=== PATIENT | male | born 1945 | race Caucasian/White ===

== ENCOUNTER 2016-12-08 17:30 | Emergency (ER) | payer MEDICARE, OTHER ==
[2016-12-08 17:51] VITALS: BP 183/73
--- NOTE | 2016-12-08 19:15 | EDM.PDOC ---
ED HPI GENERAL MEDICAL PROBLEM - General Chief Complaint: Cardiovascular Problem Stated Complaint: HBP Time Seen by Provider: 12/08/16 17:46 Source of Information: Reports: Patient, Family (), RN Notes Reviewed History Limitations: Reports: No Limitations - History of Present Illness INITIAL COMMENTS - FREE TEXT/NARRATIVE: The patient states that he developed symptoms of positional vertigo when he rolled over in bed around 02:30 in the morning, this past 12/06/2016. He had nausea and dry heaves. He got up, and the symptoms persisted for about 2 hours, but were gone in the morning. The symptoms have recurred several times since. The onset of symptoms only occurs if the patient is supine, and are always associated with nausea and dry heaves. When the symptoms began again this afternoon, the patient called the [facility]. Someone suggested he check his blood pressure, which was high, therefore the patient came here for evaluation. Here in the ED, the patient's initial blood pressure was 183/73, however, has decreased to 158/71 without treatment. The patient denies associated neurologic symptoms, such as tingling, numbness, or weakness. The patient reports similar symptoms in approximately 2012. He came to the [place] ED, where he states that no tests were done, but he was prescribed a nausea medicine. He states that he followed up with an ENT (whose name he cannot recall), but by that time his symptoms had resolved, and no further treatment was given. The patient's PCP is Dr. Aguilera at the [facility]. Treatments LOSS CONTROL ENGINEER: Reports: Other (see below) Other Treatments LOSS CONTROL ENGINEER: blood glucose check, BP check - Related Data Allergies Allergy/AdvReac Type Severity Reaction Status Date / Time No Known Allergies Allergy Verified 12/08/16 17:51 Home Meds: Home Meds Aspirin [Ecotrin] 325 mg PO DAILY 10/06/15 [History] Cholecalciferol (Vitamin D3) [Vitamin D3] 1,000 unit PO DAILY 10/06/15 [History] FLUoxetine [PROzac] 10 mg PO QAM 10/06/15 [History] Insulin Glarg,Human.Rec.Analog [LantUS Solostar] 20 units SUBCUT QAM 10/06/15 [ History] Isosorbide Dinitrate 10 mg PO BID 10/06/15 [History] Levothyroxine Sodium 137 mcg PO ACBREAKFAST 10/06/15 [History] Metoprolol Tartrate 75 mg PO BID 10/06/15 [History] Rosuvastatin Calcium 20 mg PO BEDTIME 10/06/15 [History] Terazosin HCl [Terazosin] 10 mg PO BEDTIME 10/06/15 [History] amLODIPine [Norvasc] 5 mg PO QAM 10/06/15 [History] Albuterol Sulfate [Proair Respiclick] 90 mcg IH Q6HR PRN 10/29/15 [History] Tiotropium [Spiriva HandiHaler] 2.5 mcg INH DAILY 10/29/15 [History] Vit A/C/E AC/Znox/Cupric Oxide [Eye Vitamin-Minerals Tablet] 1 each PO DAILY 11/06 [History] Finasteride [Proscar] 5 mg PO BEDTIME tablet 10/31/15 [Rx] Meclizine [Antivert] 1 tab PO Q8H PRN #10 tablet 12/08/16 [Rx] Ondansetron [Zofran ODT] 1 tab PO Q8H PRN #10 tab.dis 12/08/16 [Rx] Past Medical History HEENT History: Reports: Impaired Vision Cardiovascular History: Reports: Afib (resolved after ablation), CAD, High Cholesterol, Hypertension. 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) Psychiatric History: Reports: Depression Endocrine/Metabolic History: Reports: Diabetes, Type II, Hypothyroidism Hematologic History: Reports: Iron Deficiency - Infectious Disease History Infectious Disease History: Reports: Measles - Past Surgical History Cardiovascular Surgical History: Reports: Cardiac Ablation, Carotid Endarterectomy (left 2001, right 2002), Coronary Artery Bypass (x 3 vessel, 1909 ) GI Surgical History: Reports: Appendectomy, Colonoscopy, EGD, Hernia, Inguinal ( left) Musculoskeletal Surgical History: Reports: Other (See Below) (Right knee, open) Social & Family History - Family History Family Medical History: Noncontributory Cardiac: Reports: Bypass, CAD, AK : Reports: Renal Disease/Insufficiency, Other (See Below) Other Family History: kidney transplants Endocrine/Metabolic: Reports: Diabetes, type II Oncologic: Reports: Prostate - Tobacco Use Smoking Status *Q: Former Smoker Years of Tobacco use: 30 Packs/Tins Daily: 2 Used Tobacco, but Quit: No Month Tobacco Last Used: Quit 1991 Second Hand Smoke Exposure: No - Caffeine Use Caffeine Use: Reports: Coffee - Alcohol Use Alcohol Use History: No - Recreational Drug Use Recreational Drug Use: No - Living Situation & Occupation Living situation: Reports: , with Spouse Occupation: Retired ED ROS GENERAL - Review of Systems Review Of Systems: See Below Constitutional: Reports: No Symptoms HEENT: Reports: No Symptoms Respiratory: Reports: No Symptoms Cardiovascular: Reports: No Symptoms Endocrine: Reports: No Symptoms GI/Abdominal: Reports: No Symptoms : Reports: No Symptoms Musculoskeletal: Reports: No Symptoms Skin: Reports: No Symptoms Neurological: Reports: No Symptoms Psychiatric: Reports: No Symptoms Hematologic/Lymphatic: Reports: No Symptoms Immunologic: Reports: No Symptoms ED EXAM, GENERAL - Physical Exam Exam: See Below Exam Limited By: No Limitations General Appearance: Alert, WD/WN, No Apparent Distress Eye Exam: Bilateral Eye: EOMI, Normal Inspection, PERRL Ears: Normal External Exam, Normal Canal, Hearing Grossly Normal, Normal TMs Nose: Normal Inspection, Normal Mucosa, No Blood Throat/Mouth: Normal Inspection, Normal Lips, Normal Voice, No Airway Compromise Head: Atraumatic, Normocephalic Neck: Normal Inspection, Full Range of Motion Respiratory/Chest: No Respiratory Distress, Lungs Clear, Normal Breath Sounds, No Accessory Muscle Use Cardiovascular: Normal Peripheral Pulses, Regular Rate, Rhythm, No Gallop, No JVD, No Murmur, No Rub Peripheral Pulses: 4+: Radial (L), Radial (R) GI/Abdominal: Normal Bowel Sounds, Soft, Non-Tender, No Organomegaly, No Distention, No Abnormal Bruit, No Mass (Male) Exam: Deferred Rectal (Males) Exam: Deferred Back Exam: Normal Inspection, Full Range of Motion, NT Extremities: Normal Inspection, Normal Range of Motion, No Pedal Edema, Normal Capillary Refill Neurological: Alert, Oriented, CN II-XII Intact, Normal Cognition, No Motor/ Sensory Deficits Psychiatric: Normal Affect Skin Exam: Warm, Dry, Intact, Normal Color, No Rash Lymphatic: No Adenopathy Course - Vital Signs Last Recorded V/S: Last Vital Signs Temp 36.0 C 12/08/16 17:44 Pulse 58 L 12/08/16 17:44 Resp 18 12/08/16 17:44 BP 183/73 H 12/08/16 17:44 Pulse Ox 96 12/08/16 17:44 - Re-Assessments/Exams Free Text/Narrative Re-Assessment/Exam: 12/08/16 19:07 Clinically, the patient has BPPV. I will prescribe both Zofran and meclizine. As the patient gets his prescriptions filled [facility], I will give him physical prescriptions. He will follow up with his PCP at the [facility], where he can be referred to an ENT. 12/08/16 19:09 The patient's BP was elevated at 183/73 upon arrival to the ED, however, without treatment, it has decreased to 158/71. No treatment is required. Departure - Departure Time of Disposition: 19:09 Disposition: Home, Self-Care 01 Condition: Good Clinical Impression: BPPV (benign paroxysmal positional vertigo) Prescriptions: Meclizine [Antivert] 1 tab PO Q8H PRN #10 tablet PRN Reason: Dizziness Ondansetron [Zofran ODT] 1 tab PO Q8H PRN #10 tab.dis PRN Reason: Nausea/Vomiting Referrals: Letty Aguilera DO [Primary Care Provider] - Forms: ED Department Discharge Additional Instructions: You were seen in the emergency room for positional vertigo with associated nausea and dry heaves, and elevated blood pressure. Clinically, you are suffering from benign paroxysmal positional vertigo (BPPV), caused by the blockage of one of the 6 semicircular canals in one of your inner ears. Take one tablet of the anti-vertigo medicine meclizine up to every 8 hours, as needed for vertigo. If you take this medicine, do not drive. Dissolve one tablet of the anti-nausea medicine Zofran on your tongue up to every 8 hours, as needed for nausea/vomiting. Follow-up with your PCP, Dr. Aguilera, at the [facility], tomorrow, 12/09/2016. Arrange to be seen by an ENT as soon as possible, for further evaluation and treatment. If any other problems, please do not hesitate to return to the ER.
== END 2016-12-08 19:38 | disposition home or self-care (01) ==
LOC: JD.ED 17:30
DX: H81.10 Benign paroxysmal vertigo, unspecified ear (principal); I48.91 Unspecified atrial fibrillation; I25.10 Atherosclerotic heart disease of native coronary artery without angina pectoris; E78.00 Pure hypercholesterolemia, unspecified; I10 Essential (primary) hypertension; J44.9 Chronic obstructive pulmonary disease, unspecified; K21.9 Gastro-esophageal reflux disease without esophagitis; F32.9 Major depressive disorder, single episode, unspecified; E11.9 Type 2 diabetes mellitus without complications; E03.9 Hypothyroidism, unspecified; Z79.82 Long term (current) use of aspirin; Z79.4 Long term (current) use of insulin; Z79.899 Other long term (current) drug therapy; Z95.1 Presence of aortocoronary bypass graft; Z90.49 Acquired absence of other specified parts of digestive tract; Z98.890 Other specified postprocedural states; Z87.891 Personal history of nicotine dependence
CPT/HCPCS: 99283

== ENCOUNTER 2018-08-09 07:00 | Day surgery (SDC) | payer OTHER, MEDICARE ==
[~2018-08-09 07:00] MED LIST: Cefuroxime 10 MG/ML SYRINGE EYERT SCH; Lidocaine 1% PF 2 ML SDV INJECT SCH; Pilocarpine 4% Ophth Soln 15 ML Bot EYERT SCH
[2018-08-09] MEDS: Polymyxin B/Trimethoprim 10 ML Bottle EYERT SCH ×3 (07:15→09:02)
[2018-08-09] MEDS: Brimonidine 0.2% Ophth Soln 5 ML Bottle EYERT SCH ×3 (07:20→09:02)
[2018-08-09] MEDS: Phenylephrine 2.5% Ophth Soln 2 ML Bot EYERT SCH ×5 (07:25→08:38)
[2018-08-09] MEDS: Tropicamide 1% Ophth Soln 15 ML Bottle EYERT SCH ×4 (07:30→08:08)
--- NOTE | 2018-08-09 07:44 | PCM.PREANE ---
Preanesthetic Assessment - Procedure Proposed Procedure: Right eye extaction cataract with implant - Anesthesia/Transfusion/Family Hx Anesthesia History: Prior Anesthesia Without Reaction Family History of Anesthesia Reaction: No Transfusion History: No Prior Transfusion(s) Type of Transfusion Reactions: Reports: Unknown Intubation History: Unknown - Review of Systems General: No Symptoms Pulmonary: Other (COPD, took inhaler this morning ) Cardiovascular: No Symptoms Gastrointestinal: No Symptoms Neurological: No Symptoms Other: Reports: Diabetes, Thyroid Problems, Depression - Physical Assessment NPO Status Date: 08/08/18 NPO Status Time: 17:30 O2 Sat by Pulse Oximetry: 97 Respiratory Rate: 16 Vital Signs: Last Vital Signs Temp 36.2 C 08/09/18 07:10 Pulse 55 L 08/09/18 07:10 Resp 16 08/09/18 07:10 BP 129/64 08/09/18 07:10 Pulse Ox 97 08/09/18 07:10 Height: 1.78 m Weight: 87.09 kg ASA Class: 3 Mental Status: Alert & Oriented x3 Airway Class: Mallampati = 2 Dentition: Reports: Normal Dentition Thyro-Mental Finger Breadths: 3 Mouth Opening Finger Breadths: 4 ROM/Head Extension: Full Lungs: Clear to Auscultation, Normal Respiratory Effort Cardiovascular: Regular Rhythm, Bradycardia - Allergies Allergies/Adverse Reactions: Allergies Allergy/AdvReac Type Severity Reaction Status Date / Time No Known Allergies Allergy Verified 08/08/18 13:36 - Blood Blood Available: No - Anesthesia Plan Pre-Op Medication Ordered: None Beta Shyam: Metoprolol Med Last Dose Date: 08/09/18 Med Last Dose Time: 06:00 - Acknowledgements Anesthesia Type Planned: MAC Pt an Appropriate Candidate for the Planned Anesthesia: Yes Alternatives and Risks of Anesthesia Discussed w Pt/Guardian: Yes Pt/Guardian Understands and Agrees with Anesthesia Plan: Yes PreAnesthesia Questionnaire HEENT History: Reports: Impaired Vision Other HEENT History: difficulty swallowing after surgery on carotid artery Cardiovascular History: Reports: Afib, CAD, High Cholesterol, Hypertension, PVD (With claudication symptoms. He states he had an ankle brachial assessment last year with a wallpaper printer and barely passed..) Other Cardiovascular History: Triple bypass sugery Respiratory History: Reports: COPD Gastrointestinal History: Reports: GERD, Hemorrhoids Other Gastrointestinal History: SBO Genitourinary History: Reports: BPH Other Genitourinary History: cyst on kidneys Neurological History: Reports: Neuropathy, Peripheral (He states his legs are always hypersensitive to touch. He has significant restless leg syndrome.), Vertigo, Other (See Below) Psychiatric History: Reports: Depression Endocrine/Metabolic History: Reports: Diabetes, Type II, Hypothyroidism Hematologic History: Reports: Iron Deficiency - Infectious Disease History Infectious Disease History: Reports: Measles - Past Surgical History Cardiovascular Surgical History: Reports: Cardiac Ablation, Carotid Endarterectomy, Coronary Artery Bypass (Triple bypass surgery in 2001.) GI Surgical History: Reports: Appendectomy, Colonoscopy, EGD, Hernia, Inguinal, Other (See Below) (Laparotomy times one to two-step small bowel obstruction. Had 6 inches of bowel resected due to gangrenous bowel. Small bowel obstruction treated conservatively with nasogastric tube suction.) Musculoskeletal Surgical History: Reports: Other (See Below) - HOME MEDS Home Medications: Home Meds Aspirin [Ecotrin] 325 mg PO DAILY 10/06/15 [History] Cholecalciferol (Vitamin D3) [Vitamin D3] 1,000 unit PO DAILY 10/06/15 [History] Isosorbide Dinitrate 10 mg PO BID 10/06/15 [History] Levothyroxine Sodium 137 mcg PO ACBREAKFAST 10/06/15 [History] Metoprolol Tartrate 75 mg PO BID 10/06/15 [History] Rosuvastatin Calcium 20 mg PO BEDTIME 10/06/15 [History] amLODIPine [Norvasc] 5 mg PO QAM 10/06/15 [History] Albuterol Sulfate [Proair Respiclick] 90 mcg IH Q6HR PRN 10/29/15 [History] Vit A/C/E AC/Znox/Cupric Oxide [Eye Vitamin-Minerals Tablet] 1 each PO DAILY 11/06 [History] Docusate Sodium [Colace] 100 mg PO DAILY PRN 08/08/18 [History] FLUoxetine HCl [Fluoxetine HCl] 20 mg PO DAILY 08/08/18 [History] Insulin Glargine,Hum.Rec.Anlog [Basaglar Kwikpen U-100] 20 units SQ QAM [History] Tamsulosin HCl 0.8 mg PO DAILY 08/08/18 [History] metFORMIN HCl [Metformin HCl] 1,000 mg PO BID 04/17/19 [History] - CURRENT (IN HOUSE) MEDS Current Meds: Current Medications Brimonidine Tartrate (Alphagan 0.2% Ophth Soln) 0 ml EYERT ASDIRECTED LUCI Stop: 08/09/18 18:00 Last Admin: 08/09/18 07:20 Dose: 1 drop Cefuroxime Sodium (Zinacef) 0 mg EYERT ASDIRECTED LUCI Stop: 08/09/18 18:00 Lidocaine HCl (Xylocaine-Mpf 1%) 0 ml INJECT ASDIRECTED LUCI Stop: 08/09/18 18:00 Phenylephrine HCl (Merlin-Synephrine 2.5% Ophth Soln) 0 ml EYERT ASDIRECTED LUCI Stop: 08/09/18 18:00 Last Admin: 08/09/18 07:35 Dose: 1 drop Pilocarpine HCl (Pilocar 4% Ophth Soln) 0 ml EYERT ASDIRECTED LUCI Stop: 08/09/18 18:00 Polymyxin/Trimethoprim Sulfate (Polytrim Ophth Soln) 0 ml EYERT ASDIRECTED LUCI Stop: 08/09/18 18:00 Last Admin: 08/09/18 07:15 Dose: 1 drop Tetracaine HCl (Tetracaine 0.5% Steri-Unit Chitra) 0 ml EYERT ASDIRECTED LUCI Stop: 08/09/18 18:00 Tropicamide (Mydriacyl 1% Ophth Soln) 0 ml EYERT ASDIRECTED LUCI Stop: 08/09/18 18:00 Last Admin: 08/09/18 07:30 Dose: 1 drop
[2018-08-09] MEDS: Tetracaine HCl/PF 0.5% 4 ML Bottle EYERT SCH ×4 (08:11→08:46)
--- NOTE | 2018-08-09 09:09 | PCM48HPAN ---
Post Anesthesia Note - EVALUATION WITHIN 48HRS OF ANESTHETIC Vital Signs in Normal Range: Yes Patient Participated in Evaluation: Yes Respiratory Function Stable: Yes Airway Patent: Yes Cardiovascular Function Stable: Yes Hydration Status Stable: Yes Pain Control Satisfactory: Yes Nausea and Vomiting Control Satisfactory: Yes Mental Status Recovered: Yes Pulse Rate: 56 SaO2: 100 Resp Rate: 16 Temperature: 97.6 C Blood Pressure: 151/72 Pulse Rate: 56
[2018-08-09 09:12] VITALS: BP 133/59
== END 2018-08-09 09:10 | disposition home or self-care (01) ==
LOC: JD.SDS 07:00
PROVIDERS: ATTEND Ophthalmology
DX: H25.813 Combined forms of age-related cataract, bilateral (principal); J44.9 Chronic obstructive pulmonary disease, unspecified; F32.9 Major depressive disorder, single episode, unspecified; Z79.4 Long term (current) use of insulin; I10 Essential (primary) hypertension; I25.10 Atherosclerotic heart disease of native coronary artery without angina pectoris; N40.0 Benign prostatic hyperplasia without lower urinary tract symptoms; E03.9 Hypothyroidism, unspecified; E11.51 Type 2 diabetes mellitus with diabetic peripheral angiopathy without gangrene; E11.42 Type 2 diabetes mellitus with diabetic polyneuropathy; E78.00 Pure hypercholesterolemia, unspecified; H02.032 Senile entropion of right lower eyelid; H02.413 Mechanical ptosis of bilateral eyelids; H02.832 Dermatochalasis of right lower eyelid; H16.223 Keratoconjunctivitis sicca, not specified as Sjogren's, bilateral; Z95.1 Presence of aortocoronary bypass graft; Z79.82 Long term (current) use of aspirin; Z79.899 Other long term (current) drug therapy; Z79.890 Hormone replacement therapy
CPT/HCPCS: 66984; A9270; C1780; J0697; J2001

== ENCOUNTER 2018-09-13 10:43 | Day surgery (SDC) | payer OTHER, MEDICARE ==
[~2018-09-13 10:43] MED LIST changes: +Cefuroxime 10 MG/ML SYRINGE EYELF SCH; -Cefuroxime 10 MG/ML SYRINGE EYERT SCH; +Pilocarpine 4% Ophth Soln 15 ML Bot EYELF SCH; -Pilocarpine 4% Ophth Soln 15 ML Bot EYERT SCH
[2018-09-13] MEDS: Polymyxin B/Trimethoprim 10 ML Bottle EYELF SCH ×3 (10:55→12:39)
[2018-09-13] MEDS: Brimonidine 0.2% Ophth Soln 5 ML Bottle EYELF SCH ×3 (11:00→12:39)
[2018-09-13] MEDS: Phenylephrine 2.5% Ophth Soln 2 ML Bot EYELF SCH ×6 (11:05→12:24)
[2018-09-13] MEDS: Tropicamide 1% Ophth Soln 15 ML Bottle EYELF SCH ×4 (11:10→11:50)
--- NOTE | 2018-09-13 11:15 | PCM.PREANE ---
Preanesthetic Assessment - Procedure Proposed Procedure: Left Eye cataract extraction - Anesthesia/Transfusion/Family Hx Anesthesia History: Prior Anesthesia Without Reaction Transfusion History: No Prior Transfusion(s) Type of Transfusion Reactions: Reports: Unknown Intubation History: Unknown - Review of Systems General: No Symptoms Pulmonary: Other (COPD ) Cardiovascular: Other (open heart surgery 2008 ) Gastrointestinal: No Symptoms Neurological: No Symptoms Other: Reports: Thyroid Problems, Depression - Physical Assessment NPO Status Date: 09/13/18 NPO Status Time: 05:45 O2 Sat by Pulse Oximetry: 95 Respiratory Rate: 16 Vital Signs: Last Vital Signs Temp 36.4 C 09/13/18 10:46 Pulse 63 09/13/18 10:46 Resp 16 09/13/18 10:46 BP 167/67 H 09/13/18 10:46 Pulse Ox 95 09/13/18 10:46 Height: 1.78 m Weight: 87.09 kg ASA Class: 2 Mental Status: Alert & Oriented x3 Airway Class: Mallampati = 2 Dentition: Reports: Broken Tooth/Teeth, Missing Tooth/Teeth Thyro-Mental Finger Breadths: 3 Mouth Opening Finger Breadths: 4 ROM/Head Extension: Full Lungs: Clear to Auscultation, Normal Respiratory Effort Cardiovascular: Regular Rate, Regular Rhythm - Lab Values: Laboratory Last Values POC Glucose 104 mg/dL (83-110) 09/13/18 10:51 - Allergies Allergies/Adverse Reactions: Allergies Allergy/AdvReac Type Severity Reaction Status Date / Time No Known Allergies Allergy Verified 09/12/18 12:56 - Blood Blood Available: No - Anesthesia Plan Pre-Op Medication Ordered: None - Acknowledgements Anesthesia Type Planned: MAC Pt an Appropriate Candidate for the Planned Anesthesia: Yes Alternatives and Risks of Anesthesia Discussed w Pt/Guardian: Yes Pt/Guardian Understands and Agrees with Anesthesia Plan: Yes PreAnesthesia Questionnaire HEENT History: Reports: Impaired Vision Other HEENT History: difficulty swallowing after surgery on carotid artery Cardiovascular History: Reports: Afib, CAD, High Cholesterol, Hypertension, PVD (With claudication symptoms. He states he had an ankle brachial assessment last year with a content administrator and barely passed..) Other Cardiovascular History: Triple bypass sugery Respiratory History: Reports: COPD Gastrointestinal History: Reports: GERD, Hemorrhoids Other Gastrointestinal History: SBO Genitourinary History: Reports: BPH Other Genitourinary History: cyst on kidneys Neurological History: Reports: Neuropathy, Peripheral (He states his legs are always hypersensitive to touch. He has significant restless leg syndrome.), Vertigo, Other (See Below) Psychiatric History: Reports: Depression Endocrine/Metabolic History: Reports: Diabetes, Type II, Hypothyroidism Hematologic History: Reports: Iron Deficiency - Infectious Disease History Infectious Disease History: Reports: Measles - Past Surgical History Cardiovascular Surgical History: Reports: Cardiac Ablation, Carotid Endarterectomy, Coronary Artery Bypass (Triple bypass surgery in 2001.) GI Surgical History: Reports: Appendectomy, Colonoscopy, EGD, Hernia, Inguinal, Other (See Below) (Laparotomy times one to two-step small bowel obstruction. Had 6 inches of bowel resected due to gangrenous bowel. Small bowel obstruction treated conservatively with nasogastric tube suction.) Musculoskeletal Surgical History: Reports: Other (See Below) - HOME MEDS Home Medications: Home Meds Aspirin [Ecotrin] 325 mg PO DAILY 10/06/15 [History] Cholecalciferol (Vitamin D3) [Vitamin D3] 1,000 unit PO DAILY 10/06/15 [History] Isosorbide Dinitrate 10 mg PO BID 10/06/15 [History] Levothyroxine Sodium 137 mcg PO ACBREAKFAST 10/06/15 [History] Metoprolol Tartrate 75 mg PO BID 10/06/15 [History] Rosuvastatin Calcium 20 mg PO BEDTIME 10/06/15 [History] amLODIPine [Norvasc] 5 mg PO QAM 10/06/15 [History] Albuterol Sulfate [Proair Respiclick] 90 mcg IH Q6HR PRN 10/29/15 [History] Vit A/C/E AC/Znox/Cupric Oxide [Eye Vitamin-Minerals Tablet] 1 each PO DAILY 11/06 [History] Docusate Sodium [Colace] 100 mg PO DAILY PRN 08/08/18 [History] FLUoxetine HCl [Fluoxetine HCl] 20 mg PO DAILY 08/08/18 [History] Insulin Glargine,Hum.Rec.Anlog [Basaglar Kwikpen U-100] 20 units SQ QAM [History] Tamsulosin HCl 0.8 mg PO DAILY 08/08/18 [History] metFORMIN HCl [Metformin HCl] 1,000 mg PO BID 08/08/18 [History] - CURRENT (IN HOUSE) MEDS Current Meds: Current Medications Brimonidine Tartrate (Alphagan 0.2% Ophth Soln) 0 ml EYELF ASDIRECTED LUCI Stop: 09/13/18 18:00 Last Admin: 09/13/18 11:00 Dose: 1 drop Cefuroxime Sodium (Zinacef) 0 mg EYELF ASDIRECTED LUCI Stop: 09/13/18 18:00 Lidocaine HCl (Xylocaine-Mpf 1%) 1 ml INJECT ASDIRECTED LUCI Stop: 09/13/18 18:00 Phenylephrine HCl (Merlin-Synephrine 2.5% Ophth Soln) 0 ml EYELF ASDIRECTED LUCI Stop: 09/13/18 18:00 Last Admin: 09/13/18 11:05 Dose: 1 drop Pilocarpine HCl (Pilocar 4% Ophth Soln) 0 ml EYELF ASDIRECTED LUCI Stop: 09/13/18 18:00 Polymyxin/Trimethoprim Sulfate (Polytrim Ophth Soln) 0 ml EYELF ASDIRECTED LUCI Stop: 09/13/18 18:00 Last Admin: 09/13/18 10:55 Dose: 1 drop Tetracaine HCl (Tetracaine 0.5% Steri-Unit Chitra) 0 ml EYELF ASDIRECTED LUCI Stop: 09/13/18 18:00 Tropicamide (Mydriacyl 1% Ophth Soln) 0 ml EYELF ASDIRECTED LUCI Stop: 09/13/18 18:00
[2018-09-13] MEDS: Tetracaine HCl/PF 0.5% 4 ML Bottle EYELF SCH ×4 (12:02→12:32)
--- NOTE | 2018-09-13 12:44 | PCM.POSTAN ---
POST ANESTHESIA ASSESSMENT - MENTAL STATUS Mental Status: Alert - RESPIRATORY Respiratory Status: Respiratory Rate WNL, Airway Patent, O2 Saturation Stable - CARDIOVASCULAR CV Status: Pulse Rate WNL - GASTROINTESTINAL GI Status: No Symptoms - POST OP HYDRATION Hydration Status: Adequate & Stable
--- NOTE | 2018-09-13 12:45 | PCM48HPAN ---
Post Anesthesia Note - EVALUATION WITHIN 48HRS OF ANESTHETIC Vital Signs in Normal Range: Yes Patient Participated in Evaluation: Yes Respiratory Function Stable: Yes Airway Patent: Yes Cardiovascular Function Stable: Yes Hydration Status Stable: Yes Pain Control Satisfactory: Yes Nausea and Vomiting Control Satisfactory: Yes Mental Status Recovered: Yes Resp Rate: 16
[2018-09-13 12:57] VITALS: BP 159/78
== END 2018-09-13 12:50 | disposition home or self-care (01) ==
LOC: JD.SDS 10:43
PROVIDERS: ATTEND Ophthalmology
DX: H25.812 Combined forms of age-related cataract, left eye (principal); I25.10 Atherosclerotic heart disease of native coronary artery without angina pectoris; I10 Essential (primary) hypertension; E11.42 Type 2 diabetes mellitus with diabetic polyneuropathy; E11.51 Type 2 diabetes mellitus with diabetic peripheral angiopathy without gangrene; E78.00 Pure hypercholesterolemia, unspecified; E03.9 Hypothyroidism, unspecified; J44.9 Chronic obstructive pulmonary disease, unspecified; F32.9 Major depressive disorder, single episode, unspecified; Z98.41 Cataract extraction status, right eye; Z96.1 Presence of intraocular lens; Z95.1 Presence of aortocoronary bypass graft; Z87.891 Personal history of nicotine dependence; Z83.518 Family history of other specified eye disorder; Z79.82 Long term (current) use of aspirin; Z79.4 Long term (current) use of insulin; Z79.899 Other long term (current) drug therapy
CPT/HCPCS: 66984; 82962; C1780; J0697; J2001

== ENCOUNTER 2019-10-02 07:44 | Day surgery (SDC) | payer OTHER, MEDICARE ==
[~2019-10-02 07:44] MED LIST changes: +Albuterol 0.083% 2.5 MG/3 ML Neb Soln NEB ONE; -Cefuroxime 10 MG/ML SYRINGE EYELF SCH; +Lactated Ringers 1,000 ML IV SCH; -Lidocaine 1% PF 2 ML SDV INJECT SCH; +Lidocaine 1%/Sod Bicarbonate in NS 8.4% 1 ML Syringe IDERM PRN; -Pilocarpine 4% Ophth Soln 15 ML Bot EYELF SCH; +Sodium Chloride 0.9% 10 ML Syringe FLUSH PRN
[2019-10-02] MEDS ORDERED: Albuterol 0.083% 2.5 MG/3 ML Neb Soln ONE (08:01)
--- NOTE | 2019-10-02 08:02 | PCM.PREANE ---
Preanesthetic Assessment - Procedure Proposed Procedure: Colonoscopy - Anesthesia/Transfusion/Family Hx Anesthesia History: Prior Anesthesia Without Reaction Family History of Anesthesia Reaction: No Transfusion History: No Prior Transfusion(s) Type of Transfusion Reactions: Reports: Unknown Intubation History: Unknown - Review of Systems General: No Symptoms Pulmonary: No Symptoms, Other (COPD) Cardiovascular: Dyspnea on Exertion Gastrointestinal: No Symptoms Neurological: No Symptoms Other: Reports: Easy Bleeding, Easy Bruising, Diabetes (96 this am 0600), Thyroid Problems (hypothyroid) - Physical Assessment NPO Status Date: 10/01/19 NPO Status Time: 00:00 Height: 1.78 m Weight: 78.925 kg ASA Class: 3 Mental Status: Alert & Oriented x3 Airway Class: Mallampati = 1 Dentition: Reports: Normal Dentition, Clarinda(s) Thyro-Mental Finger Breadths: 2 Mouth Opening Finger Breadths: 3 ROM/Head Extension: Full Lungs: Clear to Auscultation, Normal Respiratory Effort Cardiovascular: Regular Rate, Regular Rhythm - Lab Values: Laboratory Last Values SARS Virus RNA (PCR) Negative (NEGATIVE) 09/30/19 10:00 - Imaging/EKG Impressions: EKG SR Rate 55 borderline low voltage - Allergies Allergies/Adverse Reactions: Allergies Allergy/AdvReac Type Severity Reaction Status Date / Time No Known Allergies Allergy Verified 09/12/18 12:56 - Blood Blood Available: No - Anesthesia Plan Pre-Op Medication Ordered: Beta Shyam Beta Shyam: Metoprolol Med Last Dose Date: 10/02/19 Med Last Dose Time: 06:00 - Acknowledgements Anesthesia Type Planned: MAC Pt an Appropriate Candidate for the Planned Anesthesia: Yes Alternatives and Risks of Anesthesia Discussed w Pt/Guardian: Yes Pt/Guardian Understands and Agrees with Anesthesia Plan: Yes PreAnesthesia Questionnaire HEENT History: Reports: Impaired Vision Other HEENT History: difficulty swallowing after surgery on carotid artery Cardiovascular History: Reports: Afib, CAD, High Cholesterol, Hypertension, PVD (With claudication symptoms. He states he had an ankle brachial assessment last year with a cat scanner operator and barely passed..) Other Cardiovascular History: Triple bypass sugery Respiratory History: Reports: COPD Gastrointestinal History: Reports: GERD, Hemorrhoids Other Gastrointestinal History: SBO Genitourinary History: Reports: BPH Other Genitourinary History: cyst on kidneys Neurological History: Reports: Neuropathy, Peripheral (He states his legs are always hypersensitive to touch. He has significant restless leg syndrome.), Vertigo, Other (See Below) Psychiatric History: Reports: Depression Endocrine/Metabolic History: Reports: Diabetes, Type II, Hypothyroidism Hematologic History: Reports: Iron Deficiency - Infectious Disease History Infectious Disease History: Reports: Measles - Past Surgical History Cardiovascular Surgical History: Reports: Cardiac Ablation, Carotid Endarterectomy, Coronary Artery Bypass (Triple bypass surgery in 2001.) GI Surgical History: Reports: Appendectomy, Colonoscopy, EGD, Hernia, Inguinal, Other (See Below) (Laparotomy times one to two-step small bowel obstruction. Had 6 inches of bowel resected due to gangrenous bowel. Small bowel obstruction treated conservatively with nasogastric tube suction.) Musculoskeletal Surgical History: Reports: Other (See Below) - HOME MEDS Home Medications: Home Meds Aspirin [Ecotrin] 325 mg PO DAILY 10/06/15 [History] Cholecalciferol (Vitamin D3) [Vitamin D3] 1,000 unit PO DAILY 10/06/15 [History] Isosorbide Dinitrate 10 mg PO BID 10/06/15 [History] Levothyroxine Sodium 137 mcg PO ACBREAKFAST 10/06/15 [History] Metoprolol Tartrate 75 mg PO BID 10/06/15 [History] Rosuvastatin Calcium 20 mg PO BEDTIME 10/06/15 [History] amLODIPine [Norvasc] 5 mg PO QAM 10/06/15 [History] Albuterol Sulfate [Proair Respiclick] 90 mcg IH Q6HR PRN 10/29/15 [History] Vit A/C/E AC/Znox/Cupric Oxide [Eye Vitamin-Minerals Tablet] 1 each PO DAILY 11/06 [History] Docusate Sodium [Colace] 100 mg PO DAILY PRN 08/08/18 [History] FLUoxetine HCl [Fluoxetine HCl] 20 mg PO DAILY 08/08/18 [History] Insulin Glargine,Hum.Rec.Anlog [Basaglar Kwikpen U-100] 20 units SQ QAM [History] Tamsulosin HCl 0.8 mg PO DAILY 08/08/18 [History] metFORMIN HCl [Metformin HCl] 1,000 mg PO BID 08/08/18 [History] - CURRENT (IN HOUSE) MEDS Current Meds: Current Medications Lactated Ringer's (Ringers, Lactated) 1,000 mls @ 125 mls/hr IV ASDIRECTED LUCI Stop: 10/02/19 23:00 Lidocaine/Sodium Bicarbonate (Buffered Lidocaine 1% In Ns 8.4%) 0.25 ml IDERM ONETIME PRN PRN Reason: Prior to IV Start Stop: 10/02/19 23:00 Sodium Chloride (Saline Flush) 10 ml FLUSH ASDIRECTED PRN PRN Reason: Keep Vein Open Stop: 10/02/19 18:00 Discontinued Medications Albuterol (Proventil Neb Soln) 2.5 mg NEB ONETIME ONE Stop: 10/02/19 00:02
[2019-10-02] MEDS ORDERED: Propofol 200 MG/20 ML SDV ONE ×2 (08:24→08:52)
[2019-10-02] MEDS ORDERED: ePHEDrine Sulfate/0.9% NaCl/Pf 25 MG/5 ML SYRINGE IV ONE (09:22)
--- NOTE | 2019-10-02 09:44 | PCM.OPNOTE ---
- General Post-Op/Procedure Note Date of Surgery/Procedure: 10/02/19 Operative Procedure(s): Colonoscopy to ascending colon Findings: 1. Inability to intubate the cecum 2. Descending colon polyps x2 3. Internal hemorrhoids Pre Op Diagnosis: history of colon polyps Post-Op Diagnosis: history of colon polyps Anesthesia Technique: MAC Primary Surgeon: Any Prescott Anesthesia Provider: Kenna Bassett Pathology: Descending colon polyps x2 Fluid Replacement, Intraop: 700 Output, Urine Amount: 0 EBL in mLs: 0 Complications: none apparent Condition: Good
--- NOTE | 2019-10-02 09:47 | PCM48HPAN ---
Post Anesthesia Note - EVALUATION WITHIN 48HRS OF ANESTHETIC Vital Signs in Normal Range: Yes Patient Participated in Evaluation: Yes Respiratory Function Stable: Yes Airway Patent: Yes Cardiovascular Function Stable: Yes Hydration Status Stable: Yes Pain Control Satisfactory: Yes Nausea and Vomiting Control Satisfactory: Yes Mental Status Recovered: Yes Vital Signs: Last Vital Signs Temp 36.7 C 10/02/19 07:50 Pulse 54 L 10/02/19 07:50 Resp 16 10/02/19 07:50 BP 147/50 H 10/02/19 07:50 Pulse Ox 98 10/02/19 07:50
[2019-10-02 09:48] VITALS: BP 126/47; PULSE 65
--- NOTE | 2019-10-02 09:49 | PCM.PRNOTE ---
- Free Text/Narrative Note: Operative Report Date of Surgery/Procedure: October 02, 2019 Operative Procedure: Colonoscopy to ascending colon with polypectomy Pre Op Diagnosis: History of colon polyps Post-Op Diagnosis: Same Surgeon: Any Prescott Anesthesia Technique: MAC Anesthesia Provider: Kenna Bassett CRNA IV Fluid Replacement, Intraop: 700cc Output, Urine Amount: 0cc EBL : 0cc Findings: 1. Inability to intubate the cecum, reached the ascending colon 2. Descending colon polyps x2 3. Diverticulosis 4. Internal hemorrhoids Specimens: Descending colon polyps x2 Indication: The patient is a 74 year-old gentleman who presented to the outpatient clinic requesting colonoscopy for history of colon polyps. We discussed the procedure of a surveillance colonoscopy including the polypectomy and biopsy. Risks of bleeding and perforation were discussed, the patient understood and wished to proceed. Written and consent was obtained Description of the procedure: The patient was brought to the endoscopy suite and placed in the left lateral decubitus position. Appropriate monitors were applied. The patient was given MAC anesthesia. An anorectal examination was performed, revealing external anal skin tags. The scope was placed into the rectum and advanced to cecum with moderate difficulty requiring change in patient position to supine, abdominal manual pressure as well as withdrawal and reinsertion of the scope. The patient s cecum was visualized but could not be entered. The ileocecal valve was identified and photographed. At this point, the scope was withdrawn, paying careful attention to the mucosa. The patient had good bowel prep, allowing for visualization of 90-95% of the mucosa. Two descending colon polyps were seen. These were removed using jumbo cold biopsy forceps was noted. Scattered small diverticula were seen. In the rectum, the scope was retroflexed and no abnormalities were noted, except for some enlarged hemorrhoidal tissue. The scope was placed back in the lumen and the excess air was aspirated. The patient tolerated the procedure well. Complications: none apparent Condition: Good, transported to PACU in stable condition Any Prescott MD General Surgery
== END 2019-10-02 10:35 | disposition home or self-care (01) ==
LOC: JD.SDS 07:44
PROVIDERS: ATTEND Surgery
DX: Z12.11 Encounter for screening for malignant neoplasm of colon (principal); K63.5 Polyp of colon; K57.30 Diverticulosis of large intestine without perforation or abscess without bleeding; K64.8 Other hemorrhoids; Z11.59 Encounter for screening for other viral diseases; E11.9 Type 2 diabetes mellitus without complications; I10 Essential (primary) hypertension; J44.9 Chronic obstructive pulmonary disease, unspecified; E78.00 Pure hypercholesterolemia, unspecified; Z90.49 Acquired absence of other specified parts of digestive tract; Z98.890 Other specified postprocedural states; Z86.010 Personal history of colon polyps; Z79.899 Other long term (current) drug therapy; Z87.891 Personal history of nicotine dependence; Z79.82 Long term (current) use of aspirin
CPT/HCPCS: 45380; 87635; 93005; 94640; J0171; J2704; J7120; U0002

== ENCOUNTER 2020-01-22 08:43 | Day surgery (SDC) | payer MEDICARE, OTHER ==
[~2020-01-22 08:43] MED LIST changes: -Albuterol 0.083% 2.5 MG/3 ML Neb Soln NEB ONE
[2020-01-22] MEDS ORDERED: Lidocaine 1% 4 ML ONE ×2 (10:07→11:35)
[2020-01-22] MEDS ORDERED: Propofol 200 MG/20 ML SDV ONE ×2 (10:07→10:45)
--- NOTE | 2020-01-22 10:16 | PCM.PREANE ---
Preanesthetic Assessment - Procedure Proposed Procedure: colonoscopy - Anesthesia/Transfusion/Family Hx Anesthesia History: Prior Anesthesia Without Reaction Family History of Anesthesia Reaction: No Transfusion History: No Prior Transfusion(s) Type of Transfusion Reactions: Reports: Chills, Unknown Intubation History: Unknown - Review of Systems General: No Symptoms Pulmonary: No Symptoms Cardiovascular: Dyspnea on Exertion Gastrointestinal: No Symptoms Neurological: No Symptoms Other: Reports: Diabetes (142 at 0600), Thyroid Problems (hypothyroid) - Physical Assessment NPO Status Date: 01/21/20 NPO Status Time: 00:00 Vital Signs: Last Vital Signs Temp 36.0 C L 01/22/20 08:40 Pulse 55 L 01/22/20 08:40 Resp 16 01/22/20 08:40 BP 135/55 L 01/22/20 08:40 Pulse Ox 98 01/22/20 08:40 Height: 1.78 m Weight: 77.564 kg ASA Class: 3 Mental Status: Alert & Oriented x3 Dentition: Reports: Normal Dentition, Carrizozo(s), Missing Tooth/Teeth Thyro-Mental Finger Breadths: 3 Mouth Opening Finger Breadths: 3 ROM/Head Extension: Full Lungs: Clear to Auscultation, Normal Respiratory Effort Cardiovascular: Regular Rate, Regular Rhythm - Lab Values: Laboratory Last Values SARS-CoV-2 RNA (AMANUEL) Negative (NEGATIVE) 01/22/20 08:38 - Allergies Allergies/Adverse Reactions: Allergies Allergy/AdvReac Type Severity Reaction Status Date / Time No Known Allergies Allergy Verified 01/21/20 12:03 - Blood Blood Available: No Product(s) Available: None - Anesthesia Plan Pre-Op Medication Ordered: Beta Shyam Beta Hsyam: Metoprolol Med Last Dose Date: 01/22/20 Med Last Dose Time: 06:00 - Acknowledgements Anesthesia Type Planned: MAC Pt an Appropriate Candidate for the Planned Anesthesia: Yes Alternatives and Risks of Anesthesia Discussed w Pt/Guardian: Yes Pt/Guardian Understands and Agrees with Anesthesia Plan: Yes PreAnesthesia Questionnaire HEENT History: Reports: Impaired Vision Other HEENT History: trouble swallowing, wears glasses Cardiovascular History: Reports: Afib, CAD, High Cholesterol, Hypertension, PVD Other Cardiovascular History: Triple bypass sugery Respiratory History: Reports: COPD, Sleep Apnea Gastrointestinal History: Reports: Chronic Constipation, GERD, Hemorrhoids, Hiatal Hernia Other Gastrointestinal History: SBO Genitourinary History: Reports: BPH Other Genitourinary History: cyst on kidneys, frequency HEAD OF QUALITY History: Reports: None Neurological History: Reports: Neuropathy, Peripheral, Vertigo, Other (See Below) Other Neuro History: cerebrovascular disease Psychiatric History: Reports: Depression Endocrine/Metabolic History: Reports: Diabetes, Type II, Hypothyroidism Hematologic History: Reports: Iron Deficiency, Other (See Below) Other Hematologic History: hematoma to neck Oncologic (Cancer) History: Reports: None Dermatologic History: Reports: None - Infectious Disease History Infectious Disease History: Reports: Measles - Past Surgical History HEENT Surgical History: Reports: Cataract Surgery, Other (See Below) Other HEENT Surgeries/Procedures: eyelid surgery Cardiovascular Surgical History: Reports: Cardiac Ablation, Carotid Endarterectomy, Coronary Artery Bypass Respiratory Surgical History: Reports: None GI Surgical History: Reports: Appendectomy, Colonoscopy, EGD, Hernia, Inguinal, Other (See Below) Other GI Surgeries/Procedures: ruptured intestine surgery October 05 Female Surgical History: Reports: None Male Surgical History: Reports: None Endocrine Surgical History: Reports: None Neurological Surgical History: Reports: None Musculoskeletal Surgical History: Reports: Other (See Below) Other Musculoskeletal Surgeries/Procedures:: right knee surgery Oncologic Surgical History: Reports: None Dermatological Surgical History: Reports: None - SUBSTANCE USE Smoking Status *Q: Former Smoker Tobacco Use Within Last Twelve Months: No Second Hand Smoke Exposure: No Days Per Week of Alcohol Use: 0 Number of Drinks Per Day: 0 Total Drinks Per Week: 0 Recreational Drug Use History: No - HOME MEDS Home Medications: Home Meds Aspirin [Ecotrin] 325 mg PO DAILY 10/06/15 [History] Cholecalciferol (Vitamin D3) [Vitamin D3] 1,000 unit PO DAILY 10/06/15 [History] Isosorbide Dinitrate 10 mg PO BID 10/06/15 [History] Levothyroxine Sodium 137 mcg PO ACBREAKFAST 10/06/15 [History] Metoprolol Tartrate 75 mg PO BID 10/06/15 [History] Rosuvastatin Calcium 20 mg PO BEDTIME 10/06/15 [History] amLODIPine [Norvasc] 5 mg PO QAM 10/06/15 [History] Albuterol Sulfate [Proair Respiclick] 90 mcg IH Q6HR PRN 10/29/15 [History] Tamsulosin HCl 0.8 mg PO DAILY 08/08/18 [History] metFORMIN HCl [Metformin HCl] 1,000 mg PO BID 08/08/18 [History] FLUoxetine HCl [Prozac] 20 mg PO DAILY 01/21/20 [History] Finasteride [Proscar] 5 mg PO DAILY 01/21/20 [History] Insulin Aspart [NovoLOG] 1 dose SQ TID PRN 01/21/20 [History] Insulin Detemir [Levemir] 20 units SQ DAILY 01/21/20 [History] L.acidoph,Paracasei, B.lactis [Probiotic] 1 cap PO DAILY 01/21/20 [History] Multivitamin [Poly-Vitamin] 1 tab PO DAILY 01/21/20 [History] Psyllium Husk (With Sugar) [Fiber Therapy Powder] 1 dose PO DAILY 01/21/20 [History] Tiotropium [Spiriva HandiHaler] 2 puff INH DAILY 01/21/20 [History] - CURRENT (IN HOUSE) MEDS Current Meds: Current Medications Lactated Ringer's (Ringers, Lactated) 1,000 mls @ 125 mls/hr IV ASDIRECTED LUCI Stop: 01/22/20 23:00 Last Admin: 01/22/20 08:55 Dose: 125 mls/hr Documented by: Lidocaine/Sodium Bicarbonate (Buffered Lidocaine 1% In Ns 8.4%) 0.25 ml IDERM ONETIME PRN PRN Reason: Prior to IV Start Stop: 01/22/20 18:00 Last Admin: 01/22/20 08:54 Dose: 0.25 ml Documented by: Sodium Chloride (Saline Flush) 10 ml FLUSH ASDIRECTED PRN PRN Reason: Keep Vein Open Stop: 01/22/20 18:00 Discontinued Medications Lidocaine HCl (Xylocaine-Mpf 1%) Confirm Administered Dose 4 mls @ as directed .ROUTE .STK-MED ONE Stop: 01/22/20 10:08 Propofol (Diprivan 20 Ml) Confirm Administered Dose 400 mg .ROUTE .STK-MED ONE Stop: 01/22/20 10:08
--- NOTE | 2020-01-22 11:21 | PCM.PRNOTE ---
- Free Text/Narrative Note: Operative Report Date of Surgery/Procedure: January 22, 2020 Operative Procedure: Colonoscopy to cecum with hemorrhoid banding Pre Op Diagnosis: hematochezia Post-Op Diagnosis: same Surgeon: Any Prescott MD Anesthesia Technique: MAC Anesthesia Provider: Haja Carlos CRNA IV Fluid Replacement, Intraop: 800cc Output, Urine Amount: 0cc EBL : 0cc Findings: internal and external hemorrhoids Specimens: none Indication: The patient is a 74 year-old gentleman who presented to the outpatient clinic requesting evaluation of his hematochezia. The patient has a history of incomplete colonoscopy due to poor prep. We discussed the procedure of a colonoscopy including the polypectomy and biopsy, as well as possible hemorrhoid banding. Risks of bleeding and perforation were discussed, the patient understood and wished to proceed. Written and consent was obtained Description of the procedure: The patient was brought to the endoscopy suite and placed in the left lateral decubitus position. Appropriate monitors were applied. The patient was given MAC anesthesia. An anorectal examination was performed, revealing external hemorrhoids and skin tags. The scope was placed into the rectum and advanced to cecum with much difficulty requiring withdrawal and reinsertion of the scope, manual abdominal pressure, and change in patient position to supine. The patients cecum was entered, and the ileocecal valve and appendiceal orifice were identified and normal. At this point, the scope was withdrawn, paying careful attention to the mucosa. The patient had good bowel prep, allowing for visualization of 90% of the mucosa. No colonic abnormality was noted. In the rectum, the scope was retroflexed and no abnormalities were noted, except for some enlarged hemorrhoidal tissue. The scope was placed back in the lumen and the excess air was aspirated. An anoscope was inserted and 3 hemorrhoid bands we re placed. The procedure was then terminated. The patient tolerated the procedure well. Complications: none apparent Condition: Good, transported to PACU in stable condition Any Prescott MD General Surgery
--- NOTE | 2020-01-22 11:21 | PCM.OPNOTE ---
- General Post-Op/Procedure Note Date of Surgery/Procedure: 01/22/20 Operative Procedure(s): Colonoscopy with hemorrhoid banding Findings: internal and external hemorrhoids Pre Op Diagnosis: hematochezia Post-Op Diagnosis: same Anesthesia Technique: MAC Primary Surgeon: Any Prescott Anesthesia Provider: Haja Carlos Pathology: none Fluid Replacement, Intraop: 800 Output, Urine Amount: 0 EBL in mLs: 0 Complications: none apparent Condition: Good
--- NOTE | 2020-01-22 11:28 | PCM48HPAN ---
Post Anesthesia Note - EVALUATION WITHIN 48HRS OF ANESTHETIC Vital Signs in Normal Range: Yes Patient Participated in Evaluation: Yes Respiratory Function Stable: Yes Airway Patent: Yes Cardiovascular Function Stable: Yes Hydration Status Stable: Yes Pain Control Satisfactory: Yes Nausea and Vomiting Control Satisfactory: Yes Mental Status Recovered: Yes Vital Signs: Last Vital Signs Temp 36.0 C L 01/22/20 08:40 Pulse 55 L 01/22/20 08:40 Resp 16 01/22/20 08:40 BP 135/55 L 01/22/20 08:40 Pulse Ox 98 01/22/20 08:40 - COMMENTS/OBSERVATIONS Free Text/Narrative:: no anesthesia complications noted
[2020-01-22 12:18] VITALS: BP 151/73; PULSE 61
== END 2020-01-22 12:48 | disposition home or self-care (01) ==
LOC: JD.SDS 08:43
PROVIDERS: ATTEND Surgery
DX: K64.4 Residual hemorrhoidal skin tags (principal); K64.8 Other hemorrhoids; E78.00 Pure hypercholesterolemia, unspecified; I10 Essential (primary) hypertension; J44.9 Chronic obstructive pulmonary disease, unspecified; Z01.812 Encounter for preprocedural laboratory examination; Z20.828 Contact with and (suspected) exposure to other viral communicable diseases; K21.9 Gastro-esophageal reflux disease without esophagitis; E03.9 Hypothyroidism, unspecified; E11.42 Type 2 diabetes mellitus with diabetic polyneuropathy; Z87.891 Personal history of nicotine dependence; Z79.82 Long term (current) use of aspirin; Z79.899 Other long term (current) drug therapy; Z79.4 Long term (current) use of insulin; Z79.890 Hormone replacement therapy
CPT/HCPCS: 45378; 46221; 87635; J2001; J2704; J7120; U0002

== ENCOUNTER 2020-10-20 14:04 | Emergency (ER) | payer OTHER ==
--- NOTE | 2020-10-20 16:46 | EDM.PDOC ---
ED HPI GENERAL MEDICAL PROBLEM - General Chief Complaint: Chest Pain Stated Complaint: CHEST PAIN AND HIGH BLOOD PRESSURE Time Seen by Provider: 10/20/20 14:15 Source of Information: Reports: Patient History Limitations: Reports: No Limitations - History of Present Illness INITIAL COMMENTS - FREE TEXT/NARRATIVE: 75 yo M with hx CABG, PCI, HTN, DM, presents with episode of epigastric and low mid chest pain that started suddenly while he was grocery shopping. The pain was sharp, radiated across his abdomen, and towards his back. It was severe. It lasted around 30 minutes then resolved spontaneously. No vomiting or associated symptoms. He has chronic SOB, no change in that. Pain had completely resolved by the time he arrived to the ED. No further pain. Feels normal now. No fever/recent illness. No additional complaint. - Related Data Allergies Allergy/AdvReac Type Severity Reaction Status Date / Time No Known Allergies Allergy Verified 10/20/20 14:13 Home Meds: Home Meds Aspirin [Ecotrin] 325 mg PO DAILY 10/06/15 [History] Cholecalciferol (Vitamin D3) [Vitamin D3] 1,000 unit PO DAILY 10/06/15 [History] Isosorbide Dinitrate 10 mg PO BID 10/06/15 [History] Levothyroxine Sodium 137 mcg PO ACBREAKFAST 10/06/15 [History] Metoprolol Tartrate 75 mg PO BID 10/06/15 [History] Rosuvastatin Calcium 20 mg PO BEDTIME 10/06/15 [History] amLODIPine [Norvasc] 5 mg PO QAM 10/06/15 [History] Albuterol Sulfate [Proair Respiclick] 90 mcg IH Q6HR PRN 10/29/15 [History] Tamsulosin HCl 0.8 mg PO DAILY 08/08/18 [History] metFORMIN HCl [Metformin HCl] 1,000 mg PO BID 08/08/18 [History] FLUoxetine HCl [Prozac] 20 mg PO DAILY 01/21/20 [History] Finasteride [Proscar] 5 mg PO DAILY 01/21/20 [History] Insulin Aspart [NovoLOG] 1 dose SQ TID PRN 01/21/20 [History] Insulin Detemir [Levemir] 20 units SQ DAILY 01/21/20 [History] L.acidoph,Paracasei, B.lactis [Probiotic] 1 cap PO DAILY 01/21/20 [History] Multivitamin [Poly-Vitamin] 1 tab PO DAILY 01/21/20 [History] Psyllium Husk (With Sugar) [Fiber Therapy Powder] 1 dose PO DAILY 01/21/20 [History] Tiotropium [Spiriva HandiHaler] 2 puff INH DAILY 01/21/20 [History] Past Medical History HEENT History: Reports: Impaired Vision Other HEENT History: trouble swallowing, wears glasses Cardiovascular History: Reports: Afib, CAD, High Cholesterol, Hypertension, PVD Other Cardiovascular History: Triple bypass sugery Respiratory History: Reports: COPD, Sleep Apnea Gastrointestinal History: Reports: Chronic Constipation, GERD, Hemorrhoids, Hiatal Hernia Other Gastrointestinal History: SBO Genitourinary History: Reports: BPH Other Genitourinary History: cyst on kidneys, frequency [employer] History: Reports: None Musculoskeletal History: Reports: None Neurological History: Reports: Neuropathy, Peripheral, Vertigo, Other (See Below) Other Neuro History: cerebrovascular disease Psychiatric History: Reports: Depression Endocrine/Metabolic History: Reports: Diabetes, Type II, Hypothyroidism Hematologic History: Reports: Iron Deficiency, Other (See Below) Other Hematologic History: hematoma to neck Oncologic (Cancer) History: Reports: None Dermatologic History: Reports: None - Infectious Disease History Infectious Disease History: Reports: Chicken Pox, Measles - Past Surgical History HEENT Surgical History: Reports: Cataract Surgery, Other (See Below) Other HEENT Surgeries/Procedures: eyelid surgery Cardiovascular Surgical History: Reports: Cardiac Ablation, Carotid Endarterectomy, Coronary Artery Bypass Respiratory Surgical History: Reports: None GI Surgical History: Reports: Appendectomy, Colonoscopy, EGD, Hernia, Inguinal, Other (See Below) Other GI Surgeries/Procedures: ruptured intestine surgery October 05 Male Surgical History: Reports: None Endocrine Surgical History: Reports: None Neurological Surgical History: Reports: None Musculoskeletal Surgical History: Reports: Other (See Below) Other Musculoskeletal Surgeries/Procedures:: right knee surgery Oncologic Surgical History: Reports: None Dermatological Surgical History: Reports: None Social & Family History - Family History Family Medical History: No Pertinent Family History Cardiac: Reports: Bypass, CAD, [place] : Reports: Renal Disease/Insufficiency, Other (See Below) Other Family History: kidney transplants Endocrine/Metabolic: Reports: Diabetes, type II Oncologic: Reports: Prostate - Tobacco Use Tobacco Use Status *Q: Never Tobacco User - Caffeine Use Caffeine Use: Reports: Coffee - Recreational Drug Use Recreational Drug Use: No - Living Situation & Occupation Living situation: Reports: , with Spouse Occupation: Retired ED ROS GENERAL - Review of Systems Review Of Systems: See Below Constitutional: Denies: Fever HEENT: Reports: No Symptoms Respiratory: Denies: Shortness of Breath Cardiovascular: Reports: Chest Pain Endocrine: Reports: No Symptoms GI/Abdominal: Denies: Vomiting Musculoskeletal: Reports: No Symptoms Skin: Reports: No Symptoms Neurological: Reports: No Symptoms Psychiatric: Reports: No Symptoms Hematologic/Lymphatic: Reports: No Symptoms Immunologic: Reports: No Symptoms ED EXAM, GENERAL - Physical Exam Exam: See Below Exam Limited By: No Limitations General Appearance: Alert, WD/WN, No Apparent Distress Eye Exam: Bilateral Eye: Normal Inspection Ears: Normal External Exam Nose: Normal Inspection Throat/Mouth: Normal Inspection, Normal Oropharynx, Normal Voice, No Airway Compromise Head: Atraumatic, Normocephalic Neck: Normal Inspection Respiratory/Chest: No Respiratory Distress, Lungs Clear, Normal Breath Sounds, Chest Non-Tender Cardiovascular: Normal Peripheral Pulses, Regular Rate, Rhythm, No Edema, No Murmur GI/Abdominal: Soft, Non-Tender, No Distention. No: Rebound Back Exam: Normal Inspection Extremities: Normal Inspection, Normal Range of Motion Neurological: Alert, Oriented, Normal Cognition Psychiatric: Normal Affect, Normal Mood Skin Exam: Warm, Dry, Intact, Normal Color Course - Vital Signs Last Recorded V/S: Last Vital Signs Temp 36.1 C 10/20/20 14:16 Pulse 69 10/20/20 14:16 Resp 16 10/20/20 14:16 BP 128/51 L 10/20/20 14:16 Pulse Ox 95 10/20/20 14:16 - Orders/Labs/Meds Orders: Active Orders 24 hr Category Date Time Status EKG 12 Lead [EKG Documentation Completion] [RC] STAT Care 10/20/20 14:17 Active Chest 1V Frontal [CR] Stat Exams 10/20/20 14:17 Taken Labs: Laboratory Tests 10/20/20 10/20/20 10/20/20 Range/Units 14:13 14:13 17:08 WBC 7.64 (4.23-9.07) K/mm3 RBC 4.38 L (4.63-6.08) M/mm3 Hgb 14.4 (13.7-17.5) gm/dl Hct 42.7 (40.1-51.0) % MCV 97.5 H (79.0-92.2) fl MCH 32.9 H (25.7-32.2) pg MCHC 33.7 (32.2-35.5) g/dl RDW Std Deviation 47.8 H (35.1-43.9) fL Plt Count 227 (163-337) K/mm3 MPV 11.2 (9.4-12.3) fl Neut % (Auto) 57.9 (34.0-67.9) % Lymph % (Auto) 24.9 (21.8-53.1) % Taney % (Auto) 13.2 H (5.3-12.2) % Eos % (Auto) 3.1 (0.8-7.0) Baso % (Auto) 0.9 (0.1-1.2) % Neut # (Auto) 4.42 (1.78-5.38) K/mm3 Lymph # (Auto) 1.90 (1.32-3.57) K/mm3 Taney # (Auto) 1.01 H (0.30-0.82) K/mm3 Eos # (Auto) 0.24 (0.04-0.54) K/mm3 Baso # (Auto) 0.07 (0.01-0.08) K/mm3 Sodium 141 (136-145) mEq/L Potassium 4.4 (3.5-5.1) mEq/L Chloride 104 (98-107) mEq/L Carbon Dioxide 23 (21-32) mEq/L Anion Gap 18.4 H (5-15) BUN 31 H (7-18) mg/dL Creatinine 1.2 (0.7-1.3) mg/dL Est Cr Clr Drug Dosing 54.92 mL/min Estimated GFR (MDRD) 59 (>60) mL/min BUN/Creatinine Ratio 25.8 H (14-18) Glucose 170 H (70-99) mg/dL Calcium 8.8 (8.5-10.1) mg/dL Total Bilirubin 0.3 (0.2-1.0) mg/dL AST 15 (15-37) U/L ALT 20 (16-63) U/L Alkaline Phosphatase 53 (46-116) U/L Troponin I < 0.017 < 0.017 (0.00-0.056) ng/mL Total Protein 8.2 (6.4-8.2) g/dl Albumin 4.3 (3.4-5.0) g/dl Globulin 3.9 gm/dL Albumin/Globulin Ratio 1.1 (1-2) Lipase 166 (73-393) U/L - Re-Assessments/Exams Free Text/Narrative Re-Assessment/Exam: 10/20/20 16:44 Normal vitals, comfortable appearing, no further pain during ED stay. His EKG shows NSR, rate 60, normal intervals, normal axis, no evidence of acute ischemia or arrhythmia. CXR shows normal cardiac silhouette, no acute abnormality. His first troponin is negative. Discussed differential extensively with patient and his - given complete resolution of symptoms prior to arrival to the ED, sinister etiology is less likely. He does have known gallstones, this is a possible explanation. Meanwhile, EKG doesn't suggest acute ischemia, will repeat troponin now. If negative and no recurrence of pain, anticipate dc home with strict ED return precautions for return of pain. 10/20/20 17:57 Continues to feel well, second troponin negative. No definite etiology for today's etiology but given the above will dc, discussed ED return precautions. Departure - Departure Time of Disposition: 17:58 Disposition: Home, Self-Care 01 Clinical Impression: Epigastric pain - Discharge Information Referrals: Rosangela Boyce MD [Primary Care Provider] - Forms: ED Department Discharge Additional Instructions: 1. Continue your usual home medications 2. Return to the ED if you have chest pain, worsening abdominal pain shortness of breath, vomiting, or other concerning symptoms. Sepsis Event Note (ED) - Evaluation Sepsis Screening Result: No Definite Risk - Focused Exam Vital Signs: Vital Signs Temp Pulse Resp BP Pulse Ox 10/20/20 14:16 36.1 C 69 16 128/51 L 95 - My Orders Last 24 Hours: My Active Orders 10/20/20 14:17 EKG 12 Lead [EKG Documentation Completion] [RC] STAT Chest 1V Frontal [CR] Stat - Assessment/Plan Last 24 Hours: My Active Orders 10/20/20 14:17 EKG 12 Lead [EKG Documentation Completion] [RC] STAT Chest 1V Frontal [CR] Stat
[2020-10-20 19:13] VITALS: BP 152/68; PULSE 60
--- NOTE | 2020-10-20 19:38 | CR ---
Chest: Portable view of the chest was obtained. Comparison: Prior chest x-rays of 07/05/15 and 10/28/15. Heart is enlarged. Hiatal hernia is noted. Sternotomy wires are seen for CABG. Lungs are clear with no acute parenchymal change. Surgical clips are seen within the neck. No acute osseous abnormality is appreciated. Impression: 1. Findings as noted above. 2. Nothing acute is appreciated on portable chest x-ray. Diagnostic code #2
== END 2020-10-20 18:40 | disposition home or self-care (01) ==
LOC: JD.ED 14:04
DX: R10.13 Epigastric pain (principal); I48.91 Unspecified atrial fibrillation; I25.10 Atherosclerotic heart disease of native coronary artery without angina pectoris; E78.00 Pure hypercholesterolemia, unspecified; I10 Essential (primary) hypertension; E11.9 Type 2 diabetes mellitus without complications; E03.9 Hypothyroidism, unspecified; J44.9 Chronic obstructive pulmonary disease, unspecified; Z79.4 Long term (current) use of insulin; Z79.899 Other long term (current) drug therapy; Z79.82 Long term (current) use of aspirin; Z95.1 Presence of aortocoronary bypass graft
CPT/HCPCS: 36415; 71045; 71045-26; 80053; 83690; 84484; 85025; 93005; 99283; 99285-25